=== PATIENT | female | born 1965 ===

== ENCOUNTER 2021-04-01 16:40 | Emergency (ER) | payer OTHER, SELFPAY ==
[2021-04-01] MEDS ORDERED: HYDROcodone/Acetaminophen 5/325 mg Tablet ONE (18:26)
[2021-04-01] MEDS ORDERED: HYDROcodone/Acetaminophen 7.5/325 mg Tablet ONE (18:28)
== END 2021-04-01 19:47 | disposition home or self-care (01) ==
LOC: CSHERS 16:40
DX: M25.461 Effusion, right knee (principal); F17.210 Nicotine dependence, cigarettes, uncomplicated